=== PATIENT | female | born 1990 | race Caucasian/White ===

== ENCOUNTER → 2024-08-18 15:00 | Outpatient (BNVA) | payer OTHER, SELFPAY | PROVIDERS: PCP Internal Medicine; Visit Provider Physician Assistant Medical | DX: Z00.00 Encounter for general adult medical examination without abnormal findings (principal); R63.4 Abnormal weight loss; F41.9 Anxiety disorder, unspecified; F32.A Depression, unspecified; E66.3 Overweight; Z68.28 Body mass index [BMI] 28.0-28.9, adult | CPT/HCPCS: 96127 ==

== ENCOUNTER 2024-09-04 06:33 | Outpatient (REF) | payer OTHER, SELFPAY ==
[2024-09-04 10:03] LABS: MANUAL DIFF FLAG NO
[2024-09-04 10:19] LABS: Basophils Percent Auto 0.6 % (0-2); Eosinophils Absolute Auto 0.1 X10*3/uL (0.0-0.4); Hematocrit 44.6 % (37.0-47.0); Hemoglobin 15.1 g/dl (12.0-16.0); Imm Gran Abs Auto 0.02 X10*3/uL (0.00-0.03); Imm Gran Pct Auto 0.4 % (0.0-0.4); Lymphocytes Absolute Auto 1.3 X10*3/uL (1.2-4.9); Lymphocytes Percent Auto 24.7 % (20-40); Mean Corpuscular HGB Conc 33.9 g/dl (31.0-35.0); Mean Corpuscular Hemoglobin 33.1 pg (27.0-33.0); Mean Corpuscular Volume 97.8 fL (80.0-98.0); Mean Platelet Volume 11.4 fL (9.4-12.3); Monocytes Absolute Auto 0.4 X10*3/uL (0.1-1.2); Monocytes Percent Auto 7.2 % (2-11); Neutrophils Absolute Auto 3.5 x10*3/uL (2.0-8.3); Neutrophils Percent Auto 65.1 % (45-73); Platelet Count 217 X10*3/uL (160-400); Red Blood Count 4.56 X10*6/uL (4.20-5.50); Red Cell Distribution Width 12.7 % (11.0-16.0); White Blood Count 5.4 X10*3/uL (4.8-10.8)
[2024-09-04 10:42] LABS: Alanine Aminotransferase 16 U/L (0-31); Albumin Level 4.1 g/dL (3.5-5.0); Alkaline Phosphatase 66 U/L (39-117); Anion Gap 11 (12-20); Aspartate Amino Transferase 25 U/L (5-31); Bilirubin Direct 0.1 mg/dL (0.0-0.5); Bilirubin Total 0.3 mg/dL (0.0-1.0); Blood Urea Nitrogen 11 mg/dL (9-16); C Reactive Protein < 0.10 mg/dL (< or = 0.50); Carbon Dioxide 26 mmol/L (22-29); Chloride 107 mmol/L (96-108); Cholesterol 178 mg/dL (<200); Estimated Glomerular Filt Rate > 60; Glucose Fasting 92 mg/dL (60-99); HDL Cholesterol 52 mg/dL (>40); Iron 79 mcg/dL (30-160); LDL Cholesterol Calculated 112 mg/dL (<100); Percent Iron Saturation 31 % (15-50); Sodium 140 mmol/L (135-145); Total Iron Binding Capacity 254 mcg/dL (228-428); Total Protein 6.8 g/dL (6.5-8.0); Triglycerides 74 mg/dL (<150); Unsaturated Iron Binding 175 ug/dL
[2024-09-04 10:56] LABS: Erythrocyte Sedimentation Rate 4 MM/HR (0-20)
[2024-09-04 10:59] LABS: Ferritin 55 ng/mL (10-122); TSH reflex Free T4 0.62 uIU/mL (0.32-4.0); Vitamin D 25-OH Total 34.5 ng/mL (>30)
[2024-09-04 11:02] LABS: Folate 3.4 ng/mL (> or = 4.0); Vitamin B12 188 pg/mL (200-900)
[2024-09-04 11:27] LABS: Estimated Average Glucose 97 mg/dL; Hemoglobin A1C 123.9385 umol/L; Total Hemoglobin (HGBA1C) 4027.8878 umol/L
[2024-09-05 05:14] LABS: Prolactin 18.4 ng/mL
[2024-09-06 23:38] LABS: Zinc 68 mcg/dL (60-130)
[2024-09-07 16:43] LABS: Vitamin A 46 mcg/dL (38-98)
[2024-09-07 17:23] LABS: Estrogen 169 pg/mL
[2024-09-08 01:22] LABS: Testosterone, Total 63 ng/dL (2-45)
[2024-09-10 18:28] LABS: Vitamin B1 <6 nmol/L (8-30)
[2024-09-16 23:53] LABS: Progesterone 3.5 ng/mL
== END 2024-09-04 06:34 | disposition home or self-care (01) ==
LOC: HO.HMGCLDS 06:33
PROVIDERS: PCP Internal Medicine; Visit Provider Physician Assistant Medical
DX: Z00.00 Encounter for general adult medical examination without abnormal findings (principal); D64.9 Anemia, unspecified; Z13.1 Encounter for screening for diabetes mellitus; Z13.6 Encounter for screening for cardiovascular disorders
CPT/HCPCS: 36415; 80053; 80061; 80076; 82248; 82306; 82607; 82672; 82728; 82746; 83036; 83540; 83735; 84144; 84146; 84403; 84425; 84443; 84590; 84630; 85025; 85652; 86140

== ENCOUNTER 2024-09-20 13:49 | Outpatient (AMB) | payer OTHER, SELFPAY ==
--- NOTE | 2024-09-20 13:56 | A.OFFVIS_ITS ---
Vital Signs 09/20/24 13:59 Height 5 ft 6 in Weight 180 lb 12.465 oz BMI 29.2 BP 100/62 Blood Pressure Location Rt brachial Position Sitting Pulse 77 Pulse Source Pulse Oximeter Pulse Oximetry (%) 97 Oxygen Delivery Method Room Air Intake Visit Reasons: abnormal findings of blood chemistry Intake Note: New patient internally referred by PCP for Abnormal Findings of Blood Chemistry. Registration Manager Required: No Accompanied by: Self / Same As Patient Allergies No Known Allergies [No Known Allergies*] Allergy (Verified 09/20/24 13:59) Medication List - Last Reconciled 09/20/24 by Chan Pichardo MD cyanocobalamin (vitamin B-12) 1,000 mcg PO DAILY cyclobenzaprine 10 mg PO Q8H folic acid 1 mg PO DAILY levonorgestrel (Mirena) intrauterine meloxicam 15 mg PO DAILY thiamine mononitrate (vit B1) 100 mg PO DAILY HPI Comments Details: The patient is a 34-year-old female presenting with elevated testosterone levels and associated symptoms. She reports a long-standing history of irregular menstrual cycles, persisting despite the use of hormonal contraceptives like the Mirena IUD and a prior brief course of Depo-Provera in 2009. Her menstrual irregularities have been present since puberty. The patient experiences significant hirsutism, particularly affecting her face and neck, which she finds bothersome and manages by shaving daily. She has not experienced any notable weight fluctuations recently and denies a personal history of diabetes, although there is a family history on her father's side. No snoring is reported, and she has had no gynecological ultrasounds to date. Her reproductive history is notable for two children with no difficulties in conception. The patient denies symptoms such as breast discharge or skin changes suggestive of [place]'s syndrome. Post-, she experienced an umbilical hernia that spontaneously resolved. Menarche was age 14 . Menses have been irregular. IUD in 2019 OCP use: - Mirena IUD since June 2019 for contraception - Depo-Provera for one three-month cycle in 2009 for contraception On Mirena has been depo Metformin use: no Weight gain: No Hirsutism/hyperandrogenism: face , neck Trying to conceive/clomiphene: has 2 children - no problem with conceiving No Ovarian U/S: No T2DM or acanthosis: No but family hx in father No sx of sleep apnea Labs: - Labs: A1c at 5.0, indicating non-diabetic status; normal liver function tests; slightly elevated cholesterol; low B12 levels; Testosterone and Estradiol levels checked. - Tests: Prolactin level checked; thyroid function assessed. [facility] Medical History (Updated 09/08/24 @ 18:22 by Marla Wynne PA-C) Hyperlipidemia LDL goal <100 Low red blood cell folate level Low vitamin B12 level Elevated testosterone level Depression Anxiety Overweight with body mass index (BMI) of 28 to 28.9 in adult Cervical cancer screening Annual physical exam Unintentional weight loss Surgical History History of surgery Family History Father Diabetes Mother Breast cancer Social History Housing: House Alcohol intake: current Alcohol intake frequency: does not drink Patient Tobacco Use Status: Current everyday Tobacco user Cigarette Packs Per Day: 1 Cigarettes Per Day: 20 service: No Current occupational status: employed Cognitive needs: No Hearing needs: No Vision needs: Yes (rx contacts) Physical Exam Vital Signs: BMI result Body Mass Index 29.2 Const Other: Thyroid gland is normal size weighs about 15 g. There are no thyroid nodules palpated. There are no cushingoid features. There is hair growth present Assessment & Plan Assessment & Plan (1) Elevated testosterone level: Code(s): R79.89 - Other specified abnormal findings of blood chemistry Category: Medical Plan: This is a 34-year-old white female found to have a slightly elevated testosterone level most likely secondary polycystic ovarian syndrome. 1. Elevated Testosterone Levels and Associated Symptoms The patient exhibits symptoms consistent with Polycystic Ovary Syndrome (PCOS), including elevated testosterone levels, irregular periods, and hirsutism. We will conduct further lab testing to exclude other conditions such as congenital adrenal hyperplasia and adrenal tumor by measuring DHEA-S level . Management strategies include considering spironolactone and exploring control pills with estrogen to manage symptoms and regulate cycles. Metformin was discussed but not indicated at this time. I discussed the likely diagnosis of Polycystic Ovary Syndrome (PCOS) with the patient, explaining the associated symptoms of elevated testosterone, irregular menstrual cycles, and hirsutism. We covered management options including spironolactone for hirsutism and control pills containing estrogen to help regulate her menstrual cycles and manage testosterone levels. The risks of spironolactone, particularly regarding , were highlighted, and the patient was advised to use effective contraception. We also discussed the need for further lab testing to rule out other endocrine disorders and the potential benefits of consulting a director of marketing operations Follow-up was recommended in four months to review lab results and treatment effectiveness. - Complete additional lab tests as discussed. - Schedule an appointment with the director of marketing operations for dietary assessment. - Follow up with your insulation manager regarding the potential use of control pills. - Consider spironolactone for hair growth after discussion with your insulation manager. - Return for follow-up in four months to review progress and lab results. - The patient had an opportunity to ask questions regarding treatment plan. The patient expressed understanding and agreement with the above treatment plan. Patient was informed and verbally consented to the use of an ambient scribe for clinic note documentation during this visit. Orders: Orders DHEA Sulfate Today R79.89 - Other specified abnormal findings of blood chemistry 17 Hydroxyprogesterone Today R79.89 - Other specified abnormal findings of blood chemistry Referrals Nutrition/Dietitian Referral R79.89 - Other specified abnormal findings of blood chemistry Coding Level of Care Code New Pt Level 4 (78664) Diagnoses Elevated testosterone level R79.89
[2024-09-20 13:59] VITALS: BP 100/62; PULSE 77; O2SAT 97; BMI 29.2
== END 2024-09-20 14:22 | disposition home or self-care (01) ==
LOC: HO.ENCR 13:50
PROVIDERS: PCP Internal Medicine; Visit Provider Internal Medicine Endocrinology, Diabetes & Metabolism
DX: R79.89 Other specified abnormal findings of blood chemistry (principal)
CPT/HCPCS: 99204

== ENCOUNTER → 2024-09-20 13:49 | Outpatient (BNVA) | payer OTHER, SELFPAY | PROVIDERS: PCP Internal Medicine; Visit Provider Internal Medicine Endocrinology, Diabetes & Metabolism ==

== ENCOUNTER 2024-10-05 12:35 | Outpatient (REF) | payer OTHER, SELFPAY ==
[2024-10-06 05:02] LABS: DHEA Sulfate 529 mcg/dL (19-237)
== END 2024-10-05 12:36 | disposition home or self-care (01) ==
LOC: HO.HMGCLDS 12:35
PROVIDERS: PCP Internal Medicine; Visit Provider Internal Medicine Endocrinology, Diabetes & Metabolism
DX: R79.89 Other specified abnormal findings of blood chemistry (principal)
CPT/HCPCS: 36415; 82627; 83498

== ENCOUNTER 2024-11-14 15:51 | Outpatient (REF) | payer OTHER, SELFPAY ==
--- NOTE | ~2024-11-14 | CT_ITS ---
EXAMINATION: CT ABDOMEN WITHOUT AND WITH CONTRAST CLINICAL INFORMATION: R79.89 - Other specified abnormal findings of blood chemistry COMPARISON: None available. DLP: 482 mGY*cm TECHNIQUE: Contiguous axial thin section helical images of the abdomen were performed before and after the administration of oral contrast and 85 mL of Omnipaque 350 intravenous contrast. The data set was reformatted in the coronal and sagittal planes and reviewed on an independent workstation. This CT examination was performed using dose optimization techniques as appropriate, variously including the following: *Automated exposure control *Adjustment of mA and/or kV according to patient size (this includes techniques or standardized protocols for targeted exams where dose is matched to indication/reason for exam; i.e. extremities or head) *Use of iterative reconstruction technique FINDINGS: LUNG BASES: Lungs are clear LIVER, GALLBLADDER, AND BILIARY TREE: Liver is homogeneous. The gallbladder contains no visible stones or wall thickening. There is no intra or extra hepatic biliary duct dilation. PANCREAS: Unremarkable SPLEEN: Unremarkable ADRENAL GLANDS AND KIDNEYS: Adrenal glands are unremarkable. There is no renal mass, calcification, hydronephrosis, or other abnormality. BOWEL LOOPS: Visualized bowel loops demonstrate no abnormality. LYMPH NODES: No adenopathy VASCULAR: Unremarkable. BONES: Unremarkable CT/CT abdomen wo/w IV con IMPRESSION: Unremarkable examination. Fleischner guidelines were followed. Electronically signed by: Jayjay Newton MD 11/14/2024 04:55 PM EDT
[2024-11-14] MEDS: iohexoL 350 MG/ML 100 ML INFUS..BTL IV (16:46)
== END 2024-11-14 15:52 | disposition home or self-care (01) ==
LOC: HO.CT 15:51
PROVIDERS: PCP Internal Medicine; Visit Provider Internal Medicine Endocrinology, Diabetes & Metabolism
DX: R79.89 Other specified abnormal findings of blood chemistry (principal)
CPT/HCPCS: 74170; Q9967

== ENCOUNTER → 2024-11-14 15:56 | Outpatient (BNV) | payer OTHER, SELFPAY | PROVIDERS: PCP Internal Medicine; Visit Provider Radiology Diagnostic Radiology | DX: R79.89 Other specified abnormal findings of blood chemistry (principal) | CPT/HCPCS: 74170 ==

== ENCOUNTER 2025-01-02 14:31 | Outpatient (AMB) | payer OTHER, SELFPAY ==
--- NOTE | 2025-01-02 14:38 | A.OFFVIS_ITS ---
VS Expanded 01/02/25 14:39 Height 5 ft 6 in Weight 181 lb 10.574 oz BMI 29.3 Intake Visit Reasons: Other specified abnormal findings of blood recorder helper seismograph Allergies No Known Allergies (No Known Allergies*) Allergy (Verified 09/20/24 13:59) Nutrition Presentation Details: Pt presents for MNT related to abnormal findings in blood chemistry Pt had low levels of B1, B12 and folate as per lab results on 08/2024, Pt is taking supplements Pt reports weight loss hx : wt at 287 lbs in 2018, 250 lbs in 2020 and reports having lost almost 100 lbs over a period of 1-2 yrs (reports unintentional weight loss related to stress). Pt reports this year her weight is maintaining in 170-180s. Pt reports choosing small meals consisting of starches or snack bars or cheese. Pt appeared not comfortable discussing eating habits today, food frequency/diary deferred for another visit. Denies vomiting, diarrhea, denies taking weight loss medications BS Monitoring Most Recent Diabetes Results: Cholesterol, (<200) 178 mg/dL 09/04/24 HDL Cholesterol, (>40) 52 mg/dL 09/04/24 Triglycerides, (<150) 74 mg/dL 09/04/24 Creatinine, (0.5-1.4) 0.82 mg/dL 09/04/24 BUN, (9-16) 11 mg/dL 09/04/24 Sodium, (135-145) 140 mmol/L 09/04/24 Potassium, (3.3-5.1) 4.0 mmol/L 09/04/24 Chloride, (96-108) 107 mmol/L 09/04/24 Carbon Dioxide, (22-29) 26 mmol/L 09/04/24 Calcium, (8.4-10.2) 9.0 mg/dL 09/04/24 AST, (5-31) 25 U/L 09/04/24 ALT, (0-31) 16 U/L 09/04/24 Total Protein, (6.5-8.0) 6.8 g/dL 09/04/24 Albumin, (3.5-5.0) 4.1 g/dL 09/04/24 NDK-Azhkrai-Oc.Jeor Equation Height: 5 ft 6 in Weight: 182 lb Resting Metabolic Rate: 1554.02 Calculated Activity Level: Mild Activity Calories Needed to Maintain Weight: 2136.78 [facility] Medical History (Updated 09/08/24 @ 18:22 by Marla Wynne PA-C) Hyperlipidemia LDL goal <100 Low red blood cell folate level Low vitamin B12 level Elevated testosterone level Depression Anxiety Overweight with body mass index (BMI) of 28 to 28.9 in adult Cervical cancer screening Annual physical exam Unintentional weight loss Surgical History History of surgery Family History Father Diabetes Mother Breast cancer Social History Housing: House Alcohol intake: current Alcohol intake frequency: does not drink Patient Tobacco Use Status: Current everyday Tobacco user Cigarette Packs Per Day: 1 Cigarettes Per Day: 20 service: No Current occupational status: employed Cognitive needs: No Hearing needs: No Vision needs: Yes (rx contacts) Assessment & Plan Assessment & Plan (1) Low vitamin B12 level: Code(s): R79.89 - Other specified abnormal findings of blood chemistry Category: Medical Plan: Wt: 83 Kg ( 01/18 ) Est kcal needs as per MSJ: 2100 (40% carb, 30% protein/fat) Est fluid needs as per 25-30 ml/d: 2500 Est prot per day as per 1 g/kg bw: 80 Recommend fiber intake : 8-10 g per day and gradually increase to 25-28 g per day for women and 35-38 g for men or as tolerated Recommend sodium intake per day : less than 2300 mg Educated patient on: ( R = reviewed V = verbalizes understanding N/R = needs review N/A = not applicable -Today discussed food sources of B vitamin and importance of combining them with Vitamin C rich foods - discussed quick meal planning following heathy plate method and food combinations for better absorption Patient Instructions: Have cottage cheese with fruit as your mid afternoon snack Add seeds to salads at lunch Coding Level of Care Code Nutr Indiv Intake (43123) Diagnoses Low vitamin B12 level R79.89 Time Spent (min) 30
[2025-01-02 14:39] VITALS: BMI 29.3
[2025-01-03 12:35] VITALS: BMI 29.4
== END 2025-01-02 14:57 | disposition home or self-care (01) ==
LOC: HO.ENCR 14:32
PROVIDERS: Visit Provider Dietitian, Registered
DX: R79.89 Other specified abnormal findings of blood chemistry (principal)

== ENCOUNTER → 2025-01-02 14:31 | Outpatient (BNVA) | payer OTHER, SELFPAY | PROVIDERS: Visit Provider Dietitian, Registered | DX: R79.89 Other specified abnormal findings of blood chemistry (principal); Z87.891 Personal history of nicotine dependence; Z68.29 Body mass index [BMI] 29.0-29.9, adult | CPT/HCPCS: 97802 ==

== ENCOUNTER 2025-01-05 09:08 | Outpatient (AMB) | payer OTHER, SELFPAY ==
[2025-01-05 09:11] VITALS: BP 124/72; PULSE 82; O2SAT 99; BMI 29.4
--- NOTE | 2025-01-05 09:11 | A.OFFVIS_ITS ---
Vital Signs 01/05/25 09:11 Height 5 ft 6 in Weight 182 lb BMI 29.4 BP 124/72 Blood Pressure Location Rt brachial Position Sitting Pulse 82 Pulse Source Pulse Oximeter Pulse Oximetry (%) 99 Oxygen Delivery Method Room Air Intake Visit Reasons: colo screening/ weight loss Intake Note: New pt for initial eval of abnormal W/L + [place] screening. No FMHx. CC; Pt denies any GI sx or concerns at this time. No immediate FMHx. Unscrambler Required: No Accompanied by: Self / Same As Patient Allergies No Known Allergies (No Known Allergies*) Allergy (Verified 01/05/25 09:11) HPI HPI colo screening/ weight loss: Details: 34 years old female with past medical history of hyperlipidemia, low vitamin B12, depression, and anxiety, unintentional weight loss is here today for initial consultation. Patient was sent to us by her PCP. Patient reports that in the past few years she lost significant amount of weight. Patient reports that she weigh almost 300 lb and lost weight going down to 157 lb. Patient reports that she was not trying to lose weight. Patient reports family history of CRC. Maternal grandmother had colon cancer with mets. Patient also reports of change in bowel pattern. Reports occasionally constipation then lose stools. Patient has not noticed if is because of the food that she eats. Patient states that it happens randomly. Patient denies any cardiac or respiratory s ymptoms. No history of sleep apnea. Not on any anticoagulation medication. No issues with anesthesia in the past. [facility] Medical History Hyperlipidemia LDL goal <100 Low red blood cell folate level Low vitamin B12 level Elevated testosterone level Depression Anxiety Overweight with body mass index (BMI) of 28 to 28.9 in adult Cervical cancer screening Annual physical exam Unintentional weight loss Surgical History History of surgery Family History (Updated 01/05/25 @ 09:17 by TONY De La Fuente) Father Diabetes Mother Breast cancer Family/Other Colon cancer Social History Housing: House Alcohol intake: current Alcohol intake frequency: does not drink Patient Tobacco Use Status: Current everyday Tobacco user Cigarette Packs Per Day: 1 Cigarettes Per Day: 20 service: No Current occupational status: employed Cognitive needs: No Hearing needs: No Vision needs: Yes (rx contacts) Review of Systems Const Denies weight gain and Denies weight loss ENT Reports no additional complaints, Denies dysphagia and Denies odynophagia Card Reports no additional complaints Resp Reports no additional complaints GI Reports abdominal pain (Epigastric), Denies belching, Denies melena, Denies bloating, Denies change in bowel habits, Reports constipation, Denies dysphagia, Denies excessive flatus, Denies dyspepsia, Reports heartburn, Denies diarrhea, Reports loose stools, Denies nausea, Denies odynophagia and Denies vomiting Musc Reports no additional complaints Neuro Reports no additional complaints Psych Reports no additional complaints Endo Reports no additional complaints Physical Exam Vital Signs: Last Vital Signs Pulse 82 01/05/25 09:11 BP 124/72 01/05/25 09:11 Pulse Ox 99 01/05/25 09:11 Oxygen Delivery Method Room Air 01/05/25 09:11 BMI result Body Mass Index 29.4 Const General: healthy appearing, no acute distress and well developed Nutritional Appearance: well nourished Orientation/consciousness: patient oriented x3 Resp Effort & Inspection: normal respiratory effort, able to speak in complete sentences, no tracheal deviation and symmetric chest movement Auscultation: clear to auscultation bilaterally Cardio Rate: regular rate GI Inspection: Yes normal to inspection and No distended Palpation (GI): Soft to palpation, not firm, nontender and No hepatosplenomegaly present Auscultation: normal bowel sounds General: Yes no CVA tenderness Back/Spine/Pelvis Back: no CVA tenderness Skin General skin exam: elasticity normal, turgor normal and dry skin Neuro General: patient oriented x3 Psych Appearance: grossly normal Mental Status: mental status grossly normal Assessment & Plan Assessment & Plan (1) Unintentional weight loss: Code(s): R63.4 - Abnormal weight loss Category: Medical (2) Screen for colon cancer: Code(s): Z12.11 - Encounter for screening for malignant neoplasm of colon (3) Family history of colon cancer: Code(s): Z80.0 - Family history of malignant neoplasm of digestive organs (4) Diarrhea: Code(s): R19.7 - Diarrhea, unspecified Qualifiers: Diarrhea type: functional diarrhea Qualified Code(s): K59.1 - Functional diarrhea (5) Constipation: Code(s): K59.00 - Constipation, unspecified Qualifiers: Constipation type: slow transit constipation Qualified Code(s): K59.01 - Slow transit constipation Plan Patient reports epigastric pain postprandially. Will check transglutaminase, vitamin B12, folate, vitamin-D level. Patient will be sent for upper endoscopy. Unintentional weight loss and his family history of CRC as well as since in bowel pattern. Patient will go for diagnostic colonoscopy. Patient denies any melena, hematochezia. No issues with anesthesia in the past. No history of sleep apnea. Not on any anticoagulation medication. He what to expect before during and after procedure discussed with patient. Stressed importance of clear liquid diet and good bowel prep day before the procedure. I will see patient after the procedure, sooner on as needed basis. She is agreeable to this plan a nd verbalizes understanding of instructions. She was given the opportunity to ask questions and all questions answered. Thank you for allowing me to participate in her care Orders: Orders Transglutaminase IgA Today R10.9 - Unspecified abdominal pain Vitamin B12 and Folate Today R19.7 - Diarrhea, unspecified Vitamin D 25-OH (D2 and D3) Today E55.9 - Vitamin D deficiency, unspecified Medications: New bisacodyl (Dulcolax (bisacodyl)) Start taking 2 tablet every night 7 days before the procedure and 1 day before procedure take 4 tablets at noon time followed by MiraLax prep 10 mg (2 x 5 mg) PO BEDTIME 16 tabs 0RF Z12.11 - Encounter for screening for malignant neoplasm of colon polyethylene glycol 3350 (Miralax) As directed by gastroenterology department at [facility] 238 grams PO ONCE 238 grams 0RF Z12.11 - Encounter for screening for malignant neoplasm of colon Coding Level of Care Code New Pt Level 4 (63957) Diagnoses Unintentional weight loss R63.4 Screen for colon cancer Z12.11 Family history of colon cancer Z80.0 Functional diarrhea K59.1 Diarrhea type: functional diarrhea Slow transit constipation K59.01 Constipation type: slow transit constipation Time Spent (min) 45 Comment 35 minutes spent with patient and additional 10 minutes spent reviewing her records
== END 2025-01-05 10:04 | disposition home or self-care (01) ==
LOC: HO.HGI 09:09
PROVIDERS: PCP Internal Medicine; Visit Provider Nurse Practitioner Family
DX: Z01.818 Encounter for other preprocedural examination (principal); Z12.11 Encounter for screening for malignant neoplasm of colon; R63.4 Abnormal weight loss; Z80.0 Family history of malignant neoplasm of digestive organs; K59.1 Functional diarrhea; K59.01 Slow transit constipation
CPT/HCPCS: S0285

== ENCOUNTER 2025-01-17 10:02 | Day surgery (SDC) | payer OTHER, SELFPAY ==
--- NOTE | 2025-01-15 14:42 | HO.ANESPROP2 ---
Documented by User: Dena Head NP 01/15/25 14:43 HPI - Anesthesia Eval Consult details Narrative: 34yo F for Upper Endoscopy and Colonoscopy PMF Active Problems Active Problems: All Active Problems Hyperlipidemia LDL goal <100 (Acute) Low red blood cell folate level (Acute) Low vitamin B12 level (Acute) Elevated testosterone level (Acute) Depression (Acute) Anxiety (Acute) Overweight with body mass index (BMI) of 28 to 28.9 in adult (Acute) Cervical cancer screening (Acute) Annual physical exam (Acute) Unintentional weight loss (Acute) Past Medical History Medical History Hyperlipidemia LDL goal <100 Low red blood cell folate level Low vitamin B12 level Elevated testosterone level Depression Anxiety Overweight with body mass index (BMI) of 28 to 28.9 in adult Cervical cancer screening Unintentional weight loss Family History Family History Father Diabetes Mother Breast cancer Family/Other Colon cancer Surgical History Surgical History History of surgery Social History Social History Housing: House Are you a primary career technical education instructor to a significant other at home: No Do you presently have visiting nurse or other home services: No Alcohol intake: current Alcohol intake frequency: does not drink Patient Tobacco Use Status: Current everyday Tobacco user Cigarette Packs Per Day: 1 Cigarettes Per Day: 20.0 service: No Current occupational status: employed Cognitive needs: No Hearing needs: No Vision needs: Yes (rx contacts) Meds Allergies Allergy/AdvReac Type Severity Reaction Status Date / Time No Known Allergies (No Known Allergy Verified 01/17/25 10:23 Allergies*) Home Medications ?Medication ?Instructions ?Recorded ?Confirmed ?Last Taken ?Type levonorgestrel (Mirena) intrauterine 08/18/24 08/18/24 Unknown History Assessment and Plan Assessment Anesthesia Assessment: Chart Reviewed Documented by User: Edi Good MD 01/17/25 11:02 [facility] Past Medical History Medical History Hyperlipidemia LDL goal <100 Low red blood cell folate level Low vitamin B12 level Elevated testosterone level Depression Anxiety Overweight with body mass index (BMI) of 28 to 28.9 in adult Cervical cancer screening Unintentional weight loss Functional capacity: independent ambulation Patient : No Family History Family History Father Diabetes Mother Breast cancer Family/Other Colon cancer Surgical History Surgical History History of surgery Social History Social History Housing: House Are you a primary career technical education instructor to a significant other at home: No Do you presently have visiting nurse or other home services: No Alcohol intake: current Alcohol intake frequency: does not drink Patient Tobacco Use Status: Current everyday Tobacco user Cigarette Packs Per Day: 1 Cigarettes Per Day: 20.0 service: No Current occupational status: employed Cognitive needs: No Hearing needs: No Vision needs: Yes (rx contacts) Meds Allergies Allergy/AdvReac Type Severity Reaction Status Date / Time No Known Allergies (No Known Allergy Verified 01/17/25 10:23 Allergies*) Home Medications ?Medication ?Instructions ?Recorded ?Confirmed ?Last Taken ?Type levonorgestrel (Mirena) intrauterine 08/18/24 08/18/24 Unknown History Exam Exam Date and Time: 01/17/25 Airway Mallampati Class: II TM Dist: >3cm Neck ROM: Full Loose/Missing/Broken Teeth: No Heart: RRR Lungs: CTAB vesicular
[2025-01-15 14:53] VITALS: BMI 29.4
--- NOTE | 2025-01-17 10:19 | MHC.SHP ---
Pre-Procedural Eval Section A - 24 Hr Update-Section A only Date of Service: 01/17/25 Section B - Complete if H&P > 30 days Chief Complaint: Abnormal weight loss,screening,gerd Relevant Family History (Specify if Yes): No Relevant Social History: Tobacco Use Present Medications: see Short Stay Collaborative assessment Medical History: Significant History (Hyperlipidemia LDL goal <100 Low red blood cell folate level Low vitamin B12 level Elevated testosterone level Depression Anxiety Overweight with body mass index (BMI) of 28 to 28.9 in adult Cervical cancer screening Annual physical exam Unintentional weight loss) History of Previous Operations: Relevant previous surgery/procedure and date(s) (History of surgery) Allergies: Allergies Allergy/AdvReac Type Severity Reaction Status Date / Time No Known Allergies (No Known Allergy Verified 01/05/25 09:11 Allergies*) Family History Family History (Updated 01/05/25 @ 09:17 by TONY De La Fuente) Father DiabetesMother Breast cancerFamily/Other Colon cancer Surgical History Surgical History Review of Systems Sugical H&P ROS: Negative: Constitution, Cardiovascular, Respiratory, Neurological, Psychiatric, Hem-Onc, Allergic/Immunologic, Gastrointestinal, Genitourinary, Musculoskeletal, Integumentary, Endocrine and Eyes/Ears/Nose/Throat Exam Surgical H&P Exam: Normal: HEENT, Normal: Heart, Normal: Lungs, Normal: Extremities, Normal: Abdomen, Normal: Skin and Normal: Neurological Plan Diagnosis/Plan: Unchanged I have reviewed the history and physical and performed a pertinent physical examination on my patient. No changes have occurred unless specified. Time Spent With Patient Time: Total time managing care of this patient today ____ minutes.
[2025-01-17 10:27] LABS: UPreg QC Valid YES
[2025-01-17 10:37] VITALS: BP 94/63; PULSE 84; RESP 14; TEMP 36.7; O2SAT 98; BMI 29.9
[2025-01-17] MEDS: Lactated Ringers 1,000 ML 100 ML IVCONT (10:50)
--- NOTE | 2025-01-17 11:51 | HO.OPN-COLON ---
Colonoscopy Operative Note Operative Note Date of Service: 01/17/25 Narrative: Operative Information Procedure Description: EGD, Colonoscopy Indication: malnutrition Anesthesia: MAC FLEXIBLE TRANSORAL UPPER GASTROINTESTINAL ENDOSCOPY AND COLONOSCOPY PROCEDURE NOTE UPPER ENDOSCOPY Consent: Indications for the procedure and potential complications of bleeding, perforation, reaction to medications and missed diagnosis were discussed with the patient and informed consent was obtained. Instrument: Olympus GIF H 190 J mid size upper endoscope Monitoring: Vital signs and clinical assessment, continuous EKG monitoring, Pulse oximetry, Carbon Dioxide monitoring and blood pressure monitoring were done throughout the procedure. Procedure: The patient was placed in the left lateral decubitis position and pre-procedure medications were administered and a bite block was placed. The endoscope was inserted into the mouth and advanced under direct vision to the third part of duodenum. A careful inspection was made as the upper endoscope was withdrawn including a retroflexed examination of the proximal stomach; Findings and interventions are described below. Findings: Larynx:normal Esophagus: GE junction at 40 cm, diaphragm hiatus at 40 cm, normal mucosa, bx taken from distal esophagus Stomach: Mild erythema. Biopsies were obtained. Grade 2 flap valve on retroflexed examination of the cardia. Duodenum: Normal bulb and descending duodenum, bx taken incl for disaccharidases Intervention: Biopsies as noted above, COLONOSCOPY Instrument: Olympus variable stiffness pediatric scope 190L Colonoscopy Monitoring: Vital signs and clinical assessment, continuous EKG monitoring, Pulse oximetry, Carbon Dioxide monitoring and blood pressure monitoring were done throughout the procedure. Colon withdrawal time was 10 minutes. Procedure: The patient was placed in the left lateral decubitis position and pre-procedure medications were administered. After a digital rectal examination of the ano-rectum, the video colonoscope was inserted into the rectum and advanced through the colon to the cecum/TI. The colonoscope was slowly withdrawn in a retrograde panoramic fashion and the colon mucosa was carefully examined including a retroflexed view of the rectum. Findings and interventions are described below. Procedure Difficulty:moderate Findings: Terminal Ileum-normal, bx taken colo bx taken from right and left colon Cecum:normal Ascending Colon: normal Transverse Colon -normal Descending Colon:normal Sigmoid Colon: 10 mm sessile polyp removed with cold snare Rectum: Retroflexion with small internal hemorrhoids, grade I, x 2 sessile polyps 4-6 mm removed with cold snare Anorectum - normal Colon preparation: [place] Bowel Preparation Scale Right colon; 2 Transverse colon: 2 Left colon; 2 (0 = Unprepared colon segment with mucosa not seen due to solid stool that cannot be cleared. 1 = Portion of mucosa of the colon segment seen, but other areas of the colon segment not well seen due to staining, residual stool and/or opaque liquid. 2 = Minor amount of residual staining, small fragments of stool and/or opaque liquid, but mucosa of colon segment seen well. 3 = Entire mucosa of colon segment seen well with no residual staining, small fragments of stool or opaque liquid) Impression and Post Procedure Diagnosis: Endoscopy Findings: mild gastritis Colonoscopy Findings: colon polyps x 3 internal hemorrhoids Plan: Await Pathology results Repeat Colonoscopy in 3-5 years if adenomatous polyps, 10 yrs if hyperplastic or earlier if clinically indicated High fiber diet leaflet avoid straining at stool, epsom salts and sitz bath, anusol supps or cream consider checking anti parietal and anti intrinsic factor Ab Above findings were reviewed with the patient and relevant handouts were provided if indicated.
[2025-01-17 11:55] VITALS: BP 101/42; PULSE 52; RESP 16; TEMP 36.2; O2SAT 98
[2025-01-17 12:10] VITALS: BP 105/61; PULSE 75; RESP 16; TEMP 36.2; O2SAT 100
[2025-01-25 01:14] LABS: Lactase 17.4 (15.0-45.5); Maltase 193.2 (100.0-224.4); Palatinase 21.0 (5.0-26.3); Sucrase 51.3 (25.0-69.9)
== END 2025-01-17 12:44 | disposition home or self-care (01) ==
PROVIDERS: Nurse Practitioner; PCP Internal Medicine; Visit Provider Internal Medicine Gastroenterology
PROC: (CPT 45385; principal; 2025-01-17 13:10)
DX: Z12.11 Encounter for screening for malignant neoplasm of colon (principal); K63.5 Polyp of colon; K62.1 Rectal polyp; K64.0 First degree hemorrhoids; K59.1 Functional diarrhea; K59.01 Slow transit constipation; K21.9 Gastro-esophageal reflux disease without esophagitis; K29.80 Duodenitis without bleeding; K29.70 Gastritis, unspecified, without bleeding; E78.5 Hyperlipidemia, unspecified; D52.9 Folate deficiency anemia, unspecified; E28.1 Androgen excess; R63.4 Abnormal weight loss; Z68.29 Body mass index [BMI] 29.0-29.9, adult; K44.9 Diaphragmatic hernia without obstruction or gangrene; F32.A Depression, unspecified; F41.9 Anxiety disorder, unspecified; F17.210 Nicotine dependence, cigarettes, uncomplicated
CPT/HCPCS: 45385; 45380; 43239; 81025; 82657; 88305; 88313; 88342; J2003; J2704; J3010

== ENCOUNTER → 2025-01-17 10:02 | Outpatient (BNV) | payer OTHER, SELFPAY | PROVIDERS: PCP Internal Medicine; Visit Provider Internal Medicine Gastroenterology | DX: R63.4 Abnormal weight loss (principal); K29.70 Gastritis, unspecified, without bleeding; D12.5 Benign neoplasm of sigmoid colon; D12.8 Benign neoplasm of rectum; K64.0 First degree hemorrhoids | CPT/HCPCS: 43239; 45385 ==

== ENCOUNTER 2025-01-22 14:28 | Outpatient (AMB) | payer OTHER, SELFPAY ==
--- NOTE | 2025-01-22 14:32 | A.OFFVIS_ITS ---
Vital Signs 01/22/25 14:35 Height 5 ft 6 in Weight 188 lb 11.451 oz BMI 30.5 BP 110/72 Blood Pressure Location Rt brachial Position Sitting Pulse 74 Pulse Source Pulse Oximeter Pulse Oximetry (%) 98 Oxygen Delivery Method Room Air Intake Visit Reasons: abnormal findings of blood chemistry Intake Note: Patient present today for Elevate Testosterone follow up. 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 Accompanied by: Self / Same As Patient Allergies No Known Allergies (No Known Allergies*) Allergy (Verified 01/22/25 14:36) Medication List - Last Reconciled 01/22/25 by Chan Pichardo MD bisacodyl (Dulcolax (bisacodyl)) 10 mg (2 x 5 mg) PO BEDTIME cyanocobalamin (vitamin B-12) 1,000 mcg PO DAILY cyclobenzaprine 10 mg PO BEDTIME folic acid 1 mg PO DAILY levonorgestrel (Mirena) intrauterine meloxicam 15 mg PO DAILY polyethylene glycol 3350 (Miralax) 238 grams PO ONCE thiamine mononitrate (vit B1) 100 mg PO DAILY HPI Comments Details: The patient is a 35-year-old female presenting with elevated testosterone levels and associated symptoms. She reports a long-standing history of irregular menstrual cycles, persisting despite the use of hormonal contraceptives like the Mirena IUD and a prior brief course of Depo-Provera in 2009. Her menstrual irregularities have been present since puberty. The patient experiences significant hirsutism, particularly affecting her face and neck, which she finds bothersome and manages by shaving daily. She has not experienced any notable weight fluctuations recently and denies a personal history of diabetes, although there is a family history on her father's side. No snoring is reported, and she has had no gynecological ultrasounds to date. Her reproductive history is notable for two children with no difficulties in conception. The patient denies symptoms such as breast discharge or skin changes suggestive of Shon's syndrome. Post-, she experienced an umbilical hernia that spontaneously resolved. Menarche was age 14 . Menses have been irregular. IUD in 2019 OCP use: - Mirena IUD since June 2019 for contraception - Depo-Provera for one three-month cycle in 2009 for contraception On Mirena has been depo Metformin use: no Weight gain: No Hirsutism/hyperandrogenism: face , neck Trying to conceive/clomiphene: has 2 children - no problem with conceiving No Ovarian U/S: No T2DM or acanthosis: No but family hx in father No sx of sleep apnea Labs: - Labs: A1c at 5.0, indicating non-diabetic status; normal liver function tests; slightly elevated cholesterol; low B12 levels; Testosterone and Estradiol levels checked. - Tests: Prolactin level checked; thyroid function assessed. [facility] Medical History Hyperlipidemia LDL goal <100 Low red blood cell folate level Low vitamin B12 level Elevated testosterone level Depression Anxiety Overweight with body mass index (BMI) of 28 to 28.9 in adult Cervical cancer screening Unintentional weight loss Surgical History History of colonoscopy History of surgery Family History Father Diabetes Mother Breast cancer Family/Other Colon cancer Social History Housing: House Are you a primary residential care officer to a significant other at home: No Do you presently have visiting nurse or other home services: No Alcohol intake: current Alcohol intake frequency: does not drink Patient Tobacco Use Status: Current everyday Tobacco user Cigarette Packs Per Day: 1 Cigarettes Per Day: 20.0 service: No Current occupational status: employed Cognitive needs: No Hearing needs: No Vision needs: Yes (rx contacts) Physical Exam Vital Signs: BMI result Body Mass Index 30.5 Assessment & Plan Assessment & Plan (1) Elevated testosterone level: Code(s): R79.89 - Other specified abnormal findings of blood chemistry Category: Medical Plan: This is a 34-year-old white female found to have a slightly elevated testoster one level most likely secondary polycystic ovarian syndrome. Adrenal and ovarian tumor ruled out with normal CAT scan of the adrenals. CAH ruled out as well. The patient is not interested in taking spironolactone for hirsutism or weight loss medications. 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 There was no need for any further endocrine workup or follow up at this point. Coding Level of Care Code Est Pt Level 3 (20541) Diagnoses Elevated testosterone level R79.89
[2025-01-22 14:35] VITALS: BP 110/72; PULSE 74; O2SAT 98; BMI 30.5
== END 2025-01-22 14:54 | disposition home or self-care (01) ==
LOC: HO.ENCR 14:29
PROVIDERS: PCP Internal Medicine; Visit Provider Internal Medicine Endocrinology, Diabetes & Metabolism
DX: R79.89 Other specified abnormal findings of blood chemistry (principal)
CPT/HCPCS: 99213

== ENCOUNTER 2025-02-16 15:57 | Outpatient (AMB) | payer OTHER, SELFPAY ==
[2025-02-16 16:17] VITALS: BP 127/67; PULSE 82; TEMP 37.2; O2SAT 99; BMI 29.9
--- NOTE | 2025-02-16 16:17 | A.OFFPC_ITS ---
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 Accompanied by: Self / Same As Patient Allergies No Known Allergies (No Known Allergies*) Allergy (Verified 02/16/25 16:32) Medication List - Last Reconciled 02/16/25 by Marla Wynne PA-C cyanocobalamin (vitamin B-12) 1,000 mcg PO DAILY cyclobenzaprine 10 mg PO BEDTIME folic acid 1 mg PO DAILY levonorgestrel (Mirena) intrauterine meloxicam 15 mg PO DAILY thiamine mononitrate (vit B1) 100 mg PO DAILY Tobacco use date assessed: 02/16/25 Dental Screening Dental Screen Date: 02/16/25 Did you have a dental visit in the last 12 months?: No Did you have a dental problem in the last 6 months where you did not have access to dental care?: No Was dental information given to patient?: Patient has dentist HPI 6 month f/u HPI Details The patient is a 35-year-old female presenting for a follow-up visit. The patient reports symptoms consistent with temporomandibular joint disorder (TMJ), including jaw pain, popping, and tightness, which have not been previously evaluated. She has not experienced any recent trauma to the jaw but notes frequent clenching and grinding of teeth, particularly at night. The patient has not previously sought treatment for these symptoms. The patient has a history of vitamin B12 deficiency, for which she has been under endocrinological care. She is aware of the deficiency due to previous testing and has been managing it with medical guidance. The patient underwent a colonoscopy which revealed hyperplastic colonic polyps and mild chronic duodenitis. The polyps were determined to be non-malignant, and the duodenitis is suggestive of a peptic etiology. She is advised to follow a high-fiber diet and avoid straining to prevent hemorrhoidal bleeding. The patient has a significant family history of breast cancer, with her mother having been diagnosed with invasive ductal carcinoma of the left breast, ER positive. Due to this history, a mammogram screening has been ordered as a preventative measure. Social History - Family Status: The patient has a famil y history of breast cancer, with her mother diagnosed with invasive ductal carcinoma. - Exercise/Habits: The patient reports f requent clenching and grinding of teeth, particularly at night. [facility] Medical History (Updated 02/16/25 @ 17:07 by Marla Wynne PA-C) TMJ syndrome Jaw pain Family history of breast cancer in mother Hyperlipidemia LDL goal <100 Low red blood cell folate level Low vitamin B12 level Elevated testosterone level Depression Anxiety Overweight with body mass index (BMI) of 28 to 28.9 in adult Cervical cancer screening Unintentional weight loss Surgical History (Updated 02/16/25 @ 17:08 by Marla Wynne PA-C) History of colonoscopy (~01/17/25) History of surgery Family History Father Diabetes Mother Breast cancer Family/Other Colon cancer Social History Housing: House Are you a primary patient care assistant to a significant other at home: No Do you presently have visiting nurse or other home services: No Alcohol intake: current Alcohol intake frequency: does not drink Patient Tobacco Use Status: Current everyday Tobacco user Cigarette Packs Per Day: 1 Cigarettes Per Day: 20.0 service: No Current occupational status: employed Cognitive needs: No Hearing needs: No Vision needs: Yes (rx contacts) Questionnaire PHQ-9 Over the last 2 weeks, how often have you been bothered by any of the following problems? 1. Little interest or pleasure in doing things: not at all 2. Feeling down, depressed, or hopeless: not at all 3. Trouble falling or staying asleep, or sleeping too much: not at all 4. Feeling tired or having little energy: not at all 5. Poor appetite or overeating: not at all 6. Feeling bad about yourself - or that you are a failure or have let yourself or your family down: not at all 7. Trouble concentrating on things, such as reading the newspaper or watching television: not at all 8. Moving or speaking so slowly that other people could have noticed. Or the opposite - being so fidgety or restless that you have been moving around a lot more than usual: not at all 9. Thoughts that you would be better off or of hurting yourself in some way: not at all Total score: 0 Depression Screening Interpretation: Negative Depression Screening Done: Yes 77974 - PHQ-9 Billing: Yes Source: Developed by Drs. Chan Mccrary, Jacinta Butler, Rashad Pearson and colleagues, with an educational shon from [employer]. Thrive Questionnaire Date Thrive assessed: 02/16/25 I am a: Patient What is your living situation today?: I have a steady place to live Within the past 12 months, did the food you bought not last and you didn't have the money to get more?: Never true Within the past 12 months, did you worry whether your food would run out before you got money to buy more?: Never true Do you have trouble paying for medicines?: No Do you have trouble getting transportation to medical appointments?: No Do you have trouble paying your heating and electricity bill?: No Do you have trouble taking care of your child, family member or friend?: No Do you have trouble with day-to-day activities such as bathing, preparing meals, shopping, managing finances, etc.?: No Are you currently unemployed and looking for a job?: No Are you interested in more education?: No Please select the resources that you would like help with: None THRIVE Score: 0 AUDIT C Alcohol Use Questionnaire (AUDIT-C) 1. How often do you have a drink containing alcohol?: Never 3. How often do you have six or more drinks on one occasion?: Never Total Score: 0 Score Reviewed/Action Taken: No LUÍS-7 AMB Questionnaire LUÍS-7 Date LUÍS - 7 assessed: 02/16/25 Feeling nervous, anxious, or on edge: 1 = Several days Not being able to stop or control worryin = Not at all Worrying too much about different things: 0 = Not at all Trouble relaxin = Several days Being so restless that it is hard to sit still: 0 = Not at all Becoming easily annoyed or irritable: 0 = Not at all Feeling afraid as if something awful might happen: 0 = Not at all Total LUÍS-7 score (0-4 normal; 5-9 mild; 10-14 moderate; 15-21 severe): 2 Source: Developed by Drs. Chan Mccrary, Jacinta Butler, Rashad Pearson and colleagues, with an educational shon from [employer]. LUÍS-7 Assessment Billing LUÍS-7 Assessment Tool: LUÍS-7 Assessment 91992 Review of Systems Const Details: - Musculoskeletal: Reports jaw pain, popping, and tightness consistent with TMJ disorder. - Gastrointestinal: Reports no symptoms of gastrointestinal bleeding, denies abdominal pain. All systems reviewed & are unremarkable except as noted in HPI and below Physical exam (Primary Care) Vital Signs: Last Vital Signs Temp 98.9 F 02/16/25 16:17 Pulse 82 02/16/25 16:17 BP 127/67 02/16/25 16:17 Pulse Ox 99 02/16/25 16:17 Oxygen Delivery Method Room Air 02/16/25 16:17 Care Plan Goal for BP management: <140/90 at Goal BMI result Body Mass Index 29.9 BMI Assessment/Plan discussion: High BMI High, discussed plan: lifestyle, weight reduction, dietary, physical activity, alcohol moderation and other Tobacco/Smoking Status: Tobacco use Status Tobacco use date assessed 02/16/25 02/16/25 16:19 Patient Tobacco Use Status Current everyday Tobacco 02/16/25 16:19 PHQ-9: PHQ-9 Score PHQ-9: Total score 0 02/16/25 16:19 Depression Screening Interpretation: Negative Thrive Assessment: Date of Thrive Assessment Date Thrive assessed 02/16/25 02/16/25 16:19 Const Other: Appearance: Alert. Oriented X3. No acute distress. Head: Normal external exam. Normocephalic. Atraumatic. Eyes: Pupils are equal, round, and reactive to light. Extraocular movements intact. Conjunctiva and sclera normal. Eyelids normal. Ears: External auditory canal normal. Tympanic membranes normal. No infection noted. TMJ noted with jaw veering to one side, popping, and pain. Throat: Pharynx normal. Uvula midline. Moist mucous membranes. Neck: Normal inspection. Neck supple. Full range of motion. No adenopathy. Thyroid Normal. No meningeal signs. No neck mass noted. Cardiovascular: Normal heart rate and rhythm. Respiratory: No respiratory distress. Painless inspiration. Back: Full range of motion noted. Skin: Skin warm and dry. Normal skin color. Normal skin turgor. No rashes/lesions/lacerations noted. Extremities:Extremities exhibit normal range of motion. Neuro: Oriented X 3. No motor deficit. No sensory deficit. Reflexes normal. Office Procedures Flu Questionnaire Does the patient have a severe egg allergy?: No Does the patient have severe life threatening allergies?: No Does the patient have a fever or illness today?: No Has the patient ever had Guillain-[place] Syndrome?: No Has the patient ever had any past reaction to a flu shot?: No Immunizations Fluarix [id number] (PF) 45 mcg (15 mcg x 3)/0.5 mL IM syringe Performing Provider: Marla Wynne PA-C [facility] Administered by: Nida Moreno CMA on 02/16/25 16:29 Dose Route Admin Location Dispensed Lot Number Expiration Date NDC Maintenance Apprentice 0.5 mL IM Left Deltoid 0.5 mL [id number] 10/23/25 [id number] [facility] [employer] VIS Given Date VIS Provided VIS Publication Date 02/16/25 Single Vaccine 24 Eligibility Eligibility Date Funding Source Not [facility] Eligible 02/16/25 Private Results Reviewed Results Reviewed: - Colonoscopy: Revealed hyperplastic colonic polyps and mild chronic duodenitis, negative for malignancy. - Biopsies: Negative for H. pylori and malignancy. Coding Level of Care Code Est Pt Level 4 (28952) Complex EM visit Add On G2211 Diagnoses TMJ syndrome M26.629 Family history of breast cancer in mother Z80.3 Additional Codes LUÍS-7 Assessment Billing - LUÍS-7 Assessment Tool: LUÍS-7 Assessment 70146 ([id number]) PHQ-9 - 09427 - PHQ-9 Billing: Yes ([id number]) Assessment & Plan Assessment & Plan (1) TMJ syndrome: Code(s): M26.629 - Arthralgia of temporomandibular joint, unspecified side Category: Medical Plan: The patient is advised to use a mouthguard at night to prevent teeth grinding and clenching, which may alleviate TMJ symptoms. A muscle relaxant has been p rescribed to help reduce muscle tension and inflammation. A CT scan of the facial bones has been ordered to further evaluate the condition. (2) Family history of breast cancer in mother: Comment: family history of breast cancer; Mother has a hx breast cancer (ER+; Left invasive ductal carcinoma Left breast s/p lumpectomy/radiation 09/22/24) Patient candidate for mammogram due to significant family history Code(s): Z80.3 - Family history of malignant neoplasm of breast Category: Medical Plan: Due to the family history of breast cancer, a mammogram screening has been ordered as a preventative measure. Plan Plan Patient was informed and verbally consented to the use of an ambient scribe for clinic note documentation during this visit. 1. Temporomandibular Joint Disorder (Tmj) The patient is advised to use a mouthguard at night to prevent teeth grinding and clenching, which may alleviate TMJ symptoms. A muscle relaxant has been prescribed to help reduce muscle tension and inflammation. A CT scan of the facial bones has been ordered to further evaluate the condition. 2. Vitamin B12 Deficiency The patient is under endocrinological care for vitamin B12 deficiency and should continue with the current management plan. 3. Colonoscopy screaming done in November Patient unsure when she has to return will reach out to Dr. Hatch the imaging engineer to ensure that her chart is updated and patient is aware of when she will return for her repeat colonoscopy she denies any acute complaints 4. Family History Of Breast Cancer Due to the family history of breast cancer, a mammogram screening has been ordered as a preventative measure. During the visit, we discussed the management of TMJ, including the use of a mouthguard and muscle relaxants to alleviate symptoms. We also reviewed the importance of a high-fiber diet to manage hemorrhoids and the need for regular colonoscopies due to the presence of hyperplastic polyps. Given the family history of breast cancer, I emphasized the necessity of a mammogram screening, which has been ordered as urgent. Orders: Orders Influenza [id number] Immunization Today Z23 - Encounter for immunization CT facial bones wo IV con Today R68.84 - Jaw pain Medications: New metaxalone 800 mg PO TID 30 tabs 3RF chlorhexidine gluconate 0.12% 15 mL buccal BID 750 mL 1RF Patient Instructions: - Use a mouthguard at night to prevent teeth grinding and clenching. - Take prescribed muscle relaxants as directed to reduce jaw tension. - Follow a high-fiber diet and avoid straining to manage hemorrhoids. - Schedule a mammogram screening as soon as possible due to family history of breast cancer. - Continue with current management plan for vitamin B12 deficiency.
== END 2025-02-16 16:52 | disposition home or self-care (01) ==
LOC: HO.HMCSH 15:57
PROVIDERS: PCP Physician Assistant Medical; Visit Provider Physician Assistant Medical
DX: M26.629 Arthralgia of temporomandibular joint, unspecified side (principal); Z80.3 Family history of malignant neoplasm of breast; Z23 Encounter for immunization

== ENCOUNTER → 2025-02-16 15:57 | Outpatient (BNVA) | payer OTHER, SELFPAY | PROVIDERS: PCP Physician Assistant Medical; Visit Provider Physician Assistant Medical | DX: M26.629 Arthralgia of temporomandibular joint, unspecified side (principal); E53.8 Deficiency of other specified B group vitamins; Z23 Encounter for immunization; Z80.3 Family history of malignant neoplasm of breast; Z86.0102 Personal history of hyperplastic colon polyps | CPT/HCPCS: 90471; 90656; 96127 ==

== ENCOUNTER 2025-02-22 08:14 | Outpatient (AMB) | payer OTHER, SELFPAY ==
[2025-02-22 08:19] VITALS: BP 124/76
--- NOTE | 2025-02-22 08:19 | MHC.OFFVIS ---
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 Patient has a history of irregular periods skipping, and hirsutism. She was concern with starting spironolactone due to the affects of her blood pressure as she tends to run low, in his often symptomatic with postural changes. She has not been diagnosed with POTS. Mirena since 2019, for cycle control, regulation. Considering removal and doing some other form of control. Currently is sexually active. She denies vaginal itching or irritation. STI screening offered; she accepts. She tries to eat healthy and stays active with exercise. Family history of breast and colon cancer. Last pap smear 2019, negative. [facility] Medical History TMJ syndrome Jaw pain Family history of breast cancer in mother Hyperlipidemia LDL goal <100 Low red blood cell folate level Low vitamin B12 level Elevated testosterone level Depression Anxiety Overweight with body mass index (BMI) of 28 to 28.9 in adult Cervical cancer screening Unintentional weight loss Surgical History History of colonoscopy (~01/17/25) History of surgery Family History Father Diabetes Mother Breast cancer Family/Other Colon cancer Social History Housing: House Are you a primary youth career specialist to a significant other at home: No Do you presently have visiting nurse or other home services: No Alcohol intake: current Alcohol intake frequency: does not drink Patient Tobacco Use Status: Current everyday Tobacco user Cigarette Packs Per Day: 1 Cigarettes Per Day: 10 service: No Current occupational status: employed 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 [employer] Cognitive needs: No Hearing needs: No Vision needs: Yes (rx contacts) Female Reproductive History Menstrual Duration of menses: 3-5 days Date of last menstrual period: 02/09/25 control method: progestin IUCD (Mirena 2020) Total pregnancies: 3 Full term: 2 Number of Living Children: 2 Ab spontaneous: 1 Review of Systems Const All systems reviewed & are unremarkable except as noted in HPI and below Reports as per HPI Eyes Reports no additional complaints ENT Reports no additional complaints Card Reports no additional complaints Resp Reports no additional complaints GI Reports as per HPI and Reports no additional complaints Reports as per HPI Musc Reports no additional complaints Skin/Breast Reports as per HPI Neuro Reports no additional complaints Psych Reports no additional complaints Endo Reports no additional complaints Lit/Lymph Reports no additional complaints Aller/Immun Reports no additional complaints Physical Exam Vital Signs: Last Vital Signs BP 124/76 02/22/25 08:19 BMI result Body Mass Index 30.0 Const General: cooperative, healthy appearing, no acute distress, well developed and alert Orientation/consciousness: patient oriented x3 HEENT Head: Yes normal to inspection Eyes General: appearance normal, both eyes and all related structures Neck Neck: Yes normal visual inspection Thyroid: Thyroid normal Chest Chest palpation & inspection: normal inspection of the chest and other (no puckering, dimpling, peau de orange, retraction, discharge, masses) Breast/axilla inspection: normal inspection of the breasts Breast/axilla palpation: normal palpation of the breasts Resp Effort & Inspection: normal respiratory effort GI Inspection: Yes normal to inspection Palpation (GI): Soft to palpation Rectal Exam - Female: deferred General: Yes bladder normal to palpation External Female Exam: normal external appearance and normal appearance of the urethra Speculum Exam - Vagina: normal appearance of the vagina, normal palpation and normal vaginal discharge Speculum Exam - Cervix: normal appearance of the cervix, normal palpation and Other cervical findings present (IUD strings at the os) Bimanual exam- vagina & uterus: normal bimanual exam, normal palpation, uterine size normal, bladder normal to palpation, normal palpation and non-tender Bimanual Exam- Adnexa, other: no masses Skin General skin exam: no rashes or lesions noted Rashes: no rashes Neuro General: patient oriented x3 Cognition (Neuro): normal cognition Extrem General: Yes normal to inspection Psych Attitude: cooperative Thought process: Normal thought process present Assessment & Plan Assessment & Plan (1) Encounter for well woman exam with routine gynecological exam: Code(s): Z01.419 - Encounter for gynecological examination (general) (routine) without abnormal findings Category: Medical Plan Discussed: Current recommendations for pap smears per ASCCP guidelines. Breast awareness and periodic breast exams. Maintain a healthy lifestyle including a well balanced diet and routine exercise. Schedule follow up for IUD removal and control consult when ready to make appointment. Patient verbalizes understanding and agrees to the plan of care. She was given opportunity to ask questions and all questions were answered to the best of my ability. RTO in one year for annual construction safety manager examination. This note is constructed using voice recognition software. While every effort has been made to ensure accuracy, mathematics education professor errors may have been included. Orders: Orders HPV High risk Today Z01.419 - Encounter for gynecological examination (general) (routine) without abnormal findings Pap Smear Today Z01.419 - Encounter for gynecological examination (general) (routine) without abnormal findings Coding Level of Care Code New Pt Prev Care [id number]([id number] Diagnoses Encounter for well woman exam with routine gynecological exam Z01.419
== END 2025-02-22 09:07 | disposition home or self-care (01) ==
LOC: HO.HWS 08:14
PROVIDERS: PCP Physician Assistant Medical; Visit Provider Advanced Practice Midwife
DX: Z01.419 Encounter for gynecological examination (general) (routine) without abnormal findings (principal)
CPT/HCPCS: 99385; 99459

== ENCOUNTER 2025-02-22 08:14 | Outpatient (REF) | payer OTHER, SELFPAY | END 2025-02-22 08:15 | disposition home or self-care (01) | LOC: HO.LNP 08:14 | PROVIDERS: PCP Physician Assistant Medical; Visit Provider Advanced Practice Midwife | DX: Z01.419 Encounter for gynecological examination (general) (routine) without abnormal findings (principal); Z11.51 Encounter for screening for human papillomavirus (HPV) | CPT/HCPCS: 87626; 88175 ==